=== PATIENT | female | born 1995 | race Caucasian/White ===

== ENCOUNTER 2017-08-27 07:06 | Day surgery (SDC) | payer BC, OTHER ==
[~2017-08-27] VITALS: Ht 162.6 cm; Wt 86.0 kg
[~2017-08-27 07:06] MED LIST: BUPIVACAINE/PF 0.5% ONE; EPINEPHRINE 1 MG/ML, 1ML ONE
[2017-08-27 07:44] VITALS: BP 128/79
[2017-08-27] MEDS ORDERED: LACTATED RINGERS 1,000 ML IV SCH (07:49)
[2017-08-27] MEDS ORDERED: NAPR220C2 PO (07:49)
[2017-08-27] MEDS ORDERED: LIDOCAINE 1%, 2ML SQ PRN (08:00)
[2017-08-27 08:02] LABS: HCG UR SG 1.029 (1.003-1.030)
[2017-08-27] MEDS ORDERED: MIDAZOLAM 1 MG/ML, 2ML ONE ×2 (08:12→10:40)
[2017-08-27] MEDS ORDERED: FENTANYL PF 250 MCG/5ML ONE (08:12)
[2017-08-27] MEDS ORDERED: DEXAMETHASONE 4 MG/ML, 1ML ONE (09:37)
[2017-08-27] MEDS ORDERED: PROPOFOL 10 MG/ML, 20ML ONE (09:37)
[2017-08-27] MEDS ORDERED: ONDANSETRON 2MG/ML, 2ML ONE (09:37)
[2017-08-27] MEDS ORDERED: PROMETHAZINE 25 MG/ML, 1ML IV PRN (10:00)
[2017-08-27] MEDS ORDERED: ACETAMINOPHEN 325 MG TABLET PO PRN (10:00)
[2017-08-27] MEDS ORDERED: OXYcodone 5 MG/5 ML ORAL.SOL UDC PO PRN (10:00)
[2017-08-27] MEDS ORDERED: HYDROcodone/APAP 7.5-325MG/15ML UDC PO PRN (10:00)
[2017-08-27] MEDS ORDERED: HYDROmorphone 1 MG/ML, 1ML IV PRN (10:00)
[2017-08-27] MEDS ORDERED: ONDANSETRON 2MG/ML, 2ML IVPush PRN (10:00)
[2017-08-27] MEDS ORDERED: MEPERIDINE/PF 50 MG/ML ONE (10:34)
[2017-08-27] MEDS ORDERED: OXYcodone 5 MG/5 ML ORAL.SOL UDC ONE (10:40)
[2017-08-27] MEDS ORDERED: ACETAMINOPHEN 650 MG/20.3 ML UDC ONE (10:40)
[2017-08-27] MEDS: MIDAZOLAM 1 MG/ML, 2ML IV PRN ×2 (10:45→11:13)
[2017-08-27] MEDS ORDERED: FENTANYL PF 100 MCG/2ML ONE (10:48)
[2017-08-27] MEDS: FENTANYL PF 100 MCG/2ML IV PRN ×2 (10:49→11:13)
[2017-08-27] MEDS ORDERED: MEPERIDINE/PF 25MG/0.5ML IVPush PRN (11:00)
[2017-08-27] MEDS ORDERED: KETOROLAC 30 MG/1 ML ONE (11:01)
== END 2017-08-27 13:20 ==
LOC: OUT 07:06
PROVIDERS: ATTEND Orthopaedic Surgery
DX: Z47.2 Encounter for removal of internal fixation device (principal)
CPT/HCPCS: 20680; 73000; 76000; 81025; J0171; J1100; J2175; J2250; J2405; J2704; J3010; J3490; J7120; J2550